=== PATIENT | male | born 1975 | race Caucasian/White ===

== ENCOUNTER 2021-01-03 09:02 | Day surgery (SDC) | payer BC ==
[~2021-01-03] VITALS: Ht 180.3 cm; Wt 86.4 kg
[~2021-01-03 09:02] MED LIST: ALLEGRA ALLERGY60 MG PO; FLONASE SENSIM5.9 ML; SUDAFED 12 HOU120 MG PO; TYLENOL325 M1 PO
--- NOTE | 2021-01-03 10:28 | NUR ---
01/03/21 Maria Luisa8 Sho Damon 1022- PT ARRIVES TO PACU NONAROUSABLE TO NOXIOUS STIMULI WITH AN OPA IN PLACE. RESP EVEN AND UNLABORED. OXYGEN SAT HIGH 90'S TO 100% ON 6L VIA MASK.
--- NOTE | 2021-01-03 11:07 | NUR ---
PATIENT BACK IN DAY SURGERY ROOM FROM PACU. RATES PAIN 1/10 IN SINUSES. DROWSY. VS CHECKED. IV SITE WNL. NASAL PACKING IN PLACE. NO NASAL DRAINAGE AT THIS TIME. SCDs ON. CALL LIGHT WITHIN REACH. ICE WATER PLACED AT BEDSIDE.
[2021-01-03] MEDS ORDERED: HYDROCODON-ACE1 EA10 PO (11:23)
[2021-01-03] MEDS ORDERED: CLEOCIN HCL300 MG PO (11:24)
--- NOTE | 2021-01-03 12:11 | NUR ---
PATIENT STATES PAIN ABOUT THE SAME. DECLINES PAIN MEDICATION AT THIS TIME. TOLERATING WATER AND APPLE JUICE. VS CHECKED. IV SITE WNL. IV SALINE LOCKED. CALL LIGHT WITHIN REACH.
--- NOTE | 2021-01-03 12:28 | NUR ---
MOUSTACHE DRESSING PLACED ON PATIENT. PATIENT ASSISTED OOB AND TO WALK AROUND ROOM. GAIT STEADY. PATIENT DRESSING INDEPENDENTLY.
--- NOTE | 2021-01-03 13:55 | NUR ---
1245: DISCHARGE INSTRUCTIONS GIVEN TO PATIENT. IV DC'D WNL. TIP INTACT. DRESSING APPLIED. MOUSTACHE DRESSING CHANGED. PATIENT DISCHARGED TO HOME VIA WHEELCHAIR WITH .
--- NOTE | 2021-01-05 14:18 | PATH ---
[facility] [address] [place], [place] [address] Signed SPECIMEN(S): A LEFT SINUS CONTENTS SPECIMEN(S): B RIGHT SINUS CONTENTS SPECIMEN SOURCE: A. LEFT SINUS CONTENTS B. RIGHT SINUS CONTENTS CLINICAL HISTORY: Chronic pansinusitis, left otitis media. FINAL PATHOLOGIC DIAGNOSIS: A. Sinus contents, left, excision: - Chronic sinusitis. - Fragments of sinonasal inflammatory polyp(s). - Fragments of viable bone with no histopathologic abnormality. B. Sinus contents, right, excision: - Chronic sinusitis. - Fragments of viable bone with no histopathologic abnormality. NAL:cml:C2NR MICROSCOPIC EXAMINATION: Histologic sections of all submitted blocks are examined by light microscopy. These findings, together with the gross examination, support the pathologic diagnosis. GROSS DESCRIPTION: Two specimens are received in two containers, labeled "SP." A. The specimen, labeled "SP, A," and designated on the requisition "left sinus contents," is received in formalin and consists of multiple fragments of pink-brownlee soft tissue and bone (2.0 x 1.4 x 0.4 cm in aggregate). The specimen is submitted entirely in cassette A1 following decalcification in Decal Stat. B. The specimen, labeled "SP, B," and designated on the requisition "right sinus contents," is received in formalin and consists of multiple fragments of pink-brownlee to hemorrhagic soft tissue and bone (2.1 x 1.8 x 0.4 cm in aggregate). The specimen is submitted entirely in cassette B1 following decalcification in Decal Stat. AC (under the direct supervision of a pathologist) The Gross Description was prepared using a voice recognition system. The report was reviewed for accuracy; however, sound-alike word errors, addition and/or deletions may occur. If there is any PATIENT NAME: АНДРЕЙ FIERRO PATHOLOGY DATE OF : 79 REPORT #: [id number] PHYSICIAN: YVES PATHOLOGY PCP: LEROY TEIXEIRA PAC REPORT IS CONFIDENTIAL AND NOT TO BE RELEASED WITHOUT AUTHORIZATION [facility] [address] [place] [address] Signed question about this report, please contact Client Services. PERFORMING LABORATORY: The technical component was performed by [employer] [address] [place] [id number] ([employer]: Michelle Malagon MD; CLIA# [id number]). Professional interpretation was performed by [employer] [facility], [address] [address] (CLIA# [id number]). Diagnostician: Ita Kim MD Pathologist Electronically Signed 01/05/2021 Copies: ~ PATIENT NAME: АНДРЕЙ FIERRO PATHOLOGY DATE OF : 79 REPORT #: [id number] PHYSICIAN: YVES PATHOLOGY PCP: LEROY TEIXEIRA PAC REPORT IS CONFIDENTIAL AND NOT TO BE RELEASED WITHOUT AUTHORIZATION
--- NOTE | 2021-01-10 10:46 | OR ---
[facility] [address] [place], [place] [address] Signed DATE OF OPERATION: 01/03/2021 SURGEON: Landry Dodd MD LOCATION: [facility] PREOPERATIVE DIAGNOSIS: Chronic sinusitis, septal deformity. POSTOPERATIVE DIAGNOSIS: Chronic sinusitis, septal deformity. PROCEDURES: Septoplasty, bilateral intranasal ethmoidectomy. ANESTHESIA: General LMA; EM Singer. PREOPERATIVE HISTORY: Андрей is a 45-year-old man with a long history of sinusitis, multiple infections, transiently partially affective response to antibiotics. He has been noted in the office to have a significant septal deformity and the CAT scan recently had shown pansinus opacification despite appropriate antibiotics, steroids, etc. He is taken to the operating room for the above-mentioned procedures. PROCEDURE AND FINDINGS: After informed consent, the patient was taken to the operating room, placed in the supine position where general LMA anesthesia was induced. The patient and procedure were verified. Preop CT was viewed throughout. The patient received preoperative intranasal oxymetazoline and intravenous clindamycin. Headlight speculum exam of the nasal cavity showed a significant septal deformity, left-sided spur impinging on the middle meatus. The septal cartilage and bone were removed with the [place]. Airway was improved. Access of the middle meatus was also improved. The left side was again approached. The middle turbinate was medialized. Ethmoid bulla was taken down with the [place]. Anterior and posterior ethmoid air cells were opened with the nasofrontal duct. Opened polypoid mucosa was removed from all these areas. Middle meatal antrostomy was made with a curving curette and widened with the [place]. Polypoid material was removed from middle meatus. The maxillary antrum bleeding was Electronically Signed By: LANDRY DODD MD 01/10/21 1046 PATIENT NAME: АНДРЕЙ FIERRO OPERATIVE REPORT DATE OF : 79 REPORT #: [id number] PHYSICIAN: LANDRY DODD MD PCP: LEROY TEIXEIRA PAC REPORT IS CONFIDENTIAL AND NOT TO BE RELEASED WITHOUT AUTHORIZATION [facility] [address] [facility] [place], [place] [address] Signed minimal, stopped afterwards, packing was then placed with Neosporin in the middle meatus and a trimmed Merocel pack coated with Neosporin in the nasal cavity. Same procedure and same findings on the right side. Packing was placed. This packing was tied anteriorly by its strings over a pad. The pharynx was suctioned clear of blood secretions. Hemostasis was verified. The patient was then awakened, extubated, transported to recovery room in good condition. COMPLICATIONS: No complications. BLOOD LOSS: Minimal. SPECIMEN: To pathology. Left and right sinus contents, separately packing 2 pieces of Merocel each nostril. DRAINS: No drains. COMPLICATIONS: No complications. Landry Dodd MD GC/JONIL /[id number] Copies: ~ Electronically Signed By: LANDRY DODD MD 01/10/21 1046 PATIENT NAME: АНДРЕЙ FIERRO OPERATIVE REPORT DATE OF : 79 REPORT #: [id number] PHYSICIAN: LANDRY DODD MD PCP: LEROY TEIXEIRA PAC REPORT IS CONFIDENTIAL AND NOT TO BE RELEASED WITHOUT AUTHORIZATION
== END 2021-01-03 12:45 | disposition home or self-care (01) ==
LOC: DS 09:02 → OPS 09:02
PROVIDERS: ATTEND Otolaryngology
PROC: 09TU8ZZ Resection of Right Ethmoid Sinus, Via Natural or Artificial Opening Endoscopic (ICD-10-PCS; 2021-01-03)
PROC: 09BM8ZZ Excision of Nasal Septum, Via Natural or Artificial Opening Endoscopic (ICD-10-PCS; principal; 2021-01-03 10:00)
PROC: 09TV8ZZ Resection of Left Ethmoid Sinus, Via Natural or Artificial Opening Endoscopic (ICD-10-PCS; 2021-01-03 10:00)
DX: J32.4 Chronic pansinusitis (principal); J34.2 Deviated nasal septum; H66.92 Otitis media, unspecified, left ear; G43.909 Migraine, unspecified, not intractable, without status migrainosus; K21.9 Gastro-esophageal reflux disease without esophagitis; Z88.6 Allergy status to analgesic agent; Z88.0 Allergy status to penicillin; Z88.2 Allergy status to sulfonamides; Z88.1 Allergy status to other antibiotic agents; Z88.8 Allergy status to other drugs, medicaments and biological substances
CPT/HCPCS: 00160; J1100; J1885; J2001; J2250; J2405; J2704; J3010; J3490; J7121